=== PATIENT | male | born 1940 | race Caucasian/White ===

== ENCOUNTER 2018-05-05 08:09 | Outpatient (CLI) | payer OTHER ==
[~2018-05-05 08:09] MED LIST: HYZAAR 100-121 UDTAB PO; LANTISEPTIC15 ML TP; ZOCOR5 MG PO
== END 2018-05-05 08:20 | disposition home or self-care (01) ==
LOC: RAD 08:09 → SONOGRAMA 08:15 → RAD 08:20
DX: I10 Essential (primary) hypertension (principal); Z01.89 Encounter for other specified special examinations; K82.4 Cholesterolosis of gallbladder; E04.2 Nontoxic multinodular goiter

== ENCOUNTER → 2019-05-03 07:42 | Outpatient (CLI) | payer OTHER | END | disposition home or self-care (01) | LOC: EKG 07:42 | DX: R00.1 Bradycardia, unspecified (principal) ==

== ENCOUNTER 2019-05-03 07:44 | Outpatient (CLI) | payer OTHER | END 2019-05-03 08:46 | disposition home or self-care (01) | LOC: RAD 07:44 → SONOGRAMA 07:44 → MAMO-SONO 08:15 → RAD 08:46 | DX: E04.2 Nontoxic multinodular goiter (principal); I10 Essential (primary) hypertension; K82.4 Cholesterolosis of gallbladder; Z13.83 Encounter for screening for respiratory disorder NEC ==

== ENCOUNTER 2021-12-27 09:40 | Emergency (ER) | payer OTHER ==
[~2021-12-27] VITALS: Ht 172.7 cm; Wt 81.6 kg
[2021-12-27] MEDS ORDERED: METFORMIN HCL1000 M1 PO (10:19)
[2021-12-27] MEDS ORDERED: TRESIBA100 UNIT/1 SUBCUTANEO (10:22)
[2021-12-27] MEDS ORDERED: GLIMEPIRIDE4 MG PO (10:23)
[2021-12-27] MEDS ORDERED: AMLODIPINE-OLM1 EAC3 PO (10:23)
[2021-12-27] MEDS ORDERED: TIROSINT75 MCG PO (10:24)
[2021-12-27] MEDS ORDERED: DUTASTERIDE-TA1 EACH PO (10:24)
[2021-12-27] MEDS ORDERED: RAPAFLO4 MG PO (10:24)
== END 2021-12-27 11:45 | disposition home or self-care (01) ==
LOC: ER 09:40
DX: S01.02XA Laceration with foreign body of scalp, initial encounter (principal); W10.9XXA Fall (on) (from) unspecified stairs and steps, initial encounter; Y93.9 Activity, unspecified; Y92.019 Unspecified place in single-family (private) house as the place of occurrence of the external cause; E11.9 Type 2 diabetes mellitus without complications; Z79.4 Long term (current) use of insulin; I10 Essential (primary) hypertension; E78.00 Pure hypercholesterolemia, unspecified; N40.0 Benign prostatic hyperplasia without lower urinary tract symptoms